=== PATIENT | female | born 1950 | race Two or more races ===

== ENCOUNTER 2020-05-18 11:33 | Outpatient (REF) | payer OTHER, MEDICARE, SELFPAY | END 2020-05-18 11:34 | disposition home or self-care (01) | LOC: HO.LAB 11:33 | PROVIDERS: PCP Internal Medicine; Visit Provider Internal Medicine | DX: Z20.828 Contact with and (suspected) exposure to other viral communicable diseases (principal) | CPT/HCPCS: C9803; U0003 ==

== ENCOUNTER 2020-07-07 08:49 | Outpatient (REF) | payer OTHER, MEDICARE, SELFPAY | END 2020-07-07 08:50 | disposition home or self-care (01) | LOC: HO.LAB 08:49 | PROVIDERS: Visit Provider Internal Medicine | DX: Z20.828 Contact with and (suspected) exposure to other viral communicable diseases (principal) | CPT/HCPCS: C9803; U0003 ==

== ENCOUNTER 2020-08-05 14:30 | Outpatient (REF) | payer OTHER, MEDICARE, SELFPAY | END 2020-08-05 14:31 | disposition home or self-care (01) | LOC: HO.LAB 14:30 | PROVIDERS: Visit Provider Internal Medicine | DX: Z20.822 Contact with and (suspected) exposure to COVID-19 (principal) | CPT/HCPCS: 36415; C9803; U0003 ==

== ENCOUNTER 2020-11-14 11:27 | Outpatient (REF) | payer OTHER, MEDICARE, SELFPAY | END 2020-11-14 11:28 | disposition home or self-care (01) | LOC: HO.LAB 11:27 | PROVIDERS: Visit Provider Internal Medicine | DX: Z20.822 Contact with and (suspected) exposure to COVID-19 (principal) | CPT/HCPCS: C9803; U0003; U0005 ==

== ENCOUNTER 2021-07-10 09:11 | Outpatient (REF) | payer OTHER, MEDICARE, SELFPAY ==
[2021-07-10 10:44] LABS: COVID-19 Test Negative (Negative)
== END 2021-07-10 09:12 | disposition home or self-care (01) ==
LOC: HO.LAB 09:11
PROVIDERS: Visit Provider Internal Medicine
DX: Z20.822 Contact with and (suspected) exposure to COVID-19 (principal)
CPT/HCPCS: 36415; 87635; C9803

== ENCOUNTER 2021-07-12 11:41 | Outpatient (REF) | payer OTHER, MEDICARE, SELFPAY ==
[2021-07-12 14:37] LABS: COVID-19 Test Negative (Negative); IDNOW Serial# 16C4AD1C
== END 2021-07-12 11:42 | disposition home or self-care (01) ==
LOC: HO.LAB 11:41
PROVIDERS: Visit Provider Internal Medicine
DX: Z20.822 Contact with and (suspected) exposure to COVID-19 (principal)
CPT/HCPCS: 36415; 87635; C9803

== ENCOUNTER 2021-07-17 10:33 | Outpatient (REF) | payer OTHER, MEDICARE, SELFPAY ==
[2021-07-17 11:09] LABS: COVID-19 Test Positive (Negative)
== END 2021-07-17 10:34 | disposition home or self-care (01) ==
LOC: HO.LAB 10:33
PROVIDERS: Visit Provider Internal Medicine
DX: Z20.822 Contact with and (suspected) exposure to COVID-19 (principal)
CPT/HCPCS: 36415; 87635; C9803